=== PATIENT | female | born 1975 | race African-American/Black ===

== ENCOUNTER 2017-04-16 15:35 | Emergency (ER) | payer OTHER ==
[2017-04-16 15:49] VITALS: BP 135/79; PULSE 89; TEMP 98.1; BMI 31.3
[2017-04-16 17:02] LABS: BASOPHIL 0.6 % (0-2.0); EOSINOPHIL 2.3 % (0-4.5); MCH 23.4 pg (25.7-33.7); MCHC 31.7 g/dl (32.0-36.0); MEAN PLT VOLUME 8.8 fl (7.5-11.1); NEUTROPHILS 69.1 % (42.8-82.8); PLATELET COUNT 289 K/MM3 (134-434); RDW 15.1 % (11.6-15.6); WHITE BLOOD COUNT 8.6 K/mm3 (4.0-10.0)
[2017-04-16 17:05] LABS: URINE APPEARANCE CLEAR; URINE BILIRUBIN NEGATIVE (NEGATIVE); URINE BLOOD NEGATIVE (NEGATIVE); URINE COLOR LTYELLOW; URINE GLUCOSE (UA) NEGATIVE (NEGATIVE); URINE KETONE NEGATIVE (NEGATIVE); URINE LEUK ESTERASE NEGATIVE (NEGATIVE); URINE NITRITE NEGATIVE (NEGATIVE); URINE PROTEIN NEGATIVE (NEGATIVE); URINE UROBILINOGEN NEGATIVE mg/dL (0.2-1.0)
[2017-04-16 17:31] LABS: ALBUMIN 3.9 g/dl (3.4-5.0); ANION GAP 7 (8-16); BILIRUBIN,TOTAL 0.6 mg/dL (0.2-1.0); CALCIUM 8.9 mg/dL (8.5-10.1); CO2 26 mmol/L (21-32); CREATININE 0.7 mg/dL (0.55-1.02); GLUCOSE,RANDOM 80 mg/dL (74-106); SGOT/AST 11 U/L (15-37); SGPT/ALT 23 U/L (12-78)
[2017-04-16 17:32] LABS: ALK PHOS 69 U/L (45-117); TOT PROT 7.4 g/dl (6.4-8.2)
--- NOTE | 2017-04-16 17:35 | PDOC ---
History of Present Illness - History of Present Illness Initial Comments: 04/16/17 17:36 The patient is a 41 year old female with history of esophageal tear (discovered January 2017, never ligated), GERD, R salpingectomy, uterine fibroids, who presents to the ED complaining approximately 1 month of left lower quadrant swelling with associated left lower quadrant pain. She described her left lower quadrant pain as dull in nature with a pulling down sensation, radiating to the left lower back, and worse prior to and during menstruation. She also reports associated nausea. The patient does endorse some urinary incontinence on sneezing and exertion and reports some discomfort on urination. She denies any pain. She also complains of some diarrhea. The patient denies vomiting or diarrhea. She denies abnormal vaginal bleeding. <Kimberley Ricks - Last Filed: 04/16/17 17:36> - General History Source: Patient Exam Limitations: No Limitations <Candido Haskins - Last Filed: 04/16/17 19:19> - General Chief Complaint: Pain, Acute Stated Complaint: LOWER ABD PAIN Time Seen by Provider: 04/16/17 16:34 Past History <Kimberley Ricks - Last Filed: 04/16/17 17:36> - Past Medical History Anemia: Yes Asthma: No Cancer: No Cardiac Disorders: No CVA: No COPD: No CHF: No Dementia: No Diabetes: No GI Disorders: Yes (ABD. BLOATING) Disorders: No HTN: No Hypercholesterolemia: No Liver Disease: No Seizures: No Thyroid Disease: No - Surgical History Abdominal Surgery: No Appendectomy: No Cardiac Surgery: No Cholecystectomy: No Lung Surgery: No Neurologic Surgery: No Orthopedic Surgery: No - Immunization History Immunization Up to Date: Yes - Psycho/Social/Smoking Cessation Hx Anxiety: No Suicidal Ideation: No Smoking Status: Yes Smoking History: Current some day smoker Have you smoked in the past 12 months: No Number of Cigarettes Smoked Daily: 2 Cigars Per Day: 2 Information on smoking cessation initiated: No 'Breaking Loose' booklet given: 02/20/14 Hx Alcohol Use: No Drug/Substance Use Hx: No Substance Use Type: Alcohol Hx Substance Use Treatment: No <Candido Haskins - Last Filed: 04/16/17 19:19> - Past Medical History Allergies/Adverse Reactions: Allergies Allergy/AdvReac Type Severity Reaction Status Date / Time No Known Drug Allergies Allergy Severe Difficulty Verified 04/16/17 15:43 Breathing shrimp Allergy Severe Difficulty Uncoded 04/16/17 15:43 Breathing Home Medications: Ambulatory Orders Albuterol Sulfate Inhaler - [Ventolin HFA Inhaler -] 1 - 2 inh PO Q4H #1 inhaler 04/12/16 Ranitidine [Zantac -] 150 mg PO DAILY 04/12/16 Cyclobenzaprine HCl [Flexeril -] 10 mg PO TID #15 tablet 06/09/16 Omeprazole 10 mg PO ASDIR 06/09/16 Review of Systems - Review of Systems Able to Perform ROS?: Yes Comments:: 04/16/17 17:36 GENERAL/CONSTITUTIONAL: No fever or chills. No weakness. HEAD, EYES, EARS, NOSE AND THROAT: No change in vision. No ear pain or discharge. No sore throat CARDIOVASCULAR: No chest pain or shortness of breath. RESPIRATORY: No cough, wheezing, or hemoptysis. GASTROINTESTINAL: +LLQ pain, nausea. No vomiting or diarrhea. GENITOURINARY: +Stress urinary incontinence. No dysuria, frequency, or hematuria. No abnormal vaginal bleeding. MUSCULOSKELETAL: No joint or muscle swelling or pain. No neck or back pain. SKIN: No rash NEUROLOGIC: No headache, vertigo, loss of consciousness, or change in strength/ sensation. ENDOCRINE: No increased thirst. No abnormal weight change. HEMATOLOGIC/LYMPHATIC: No anemia, easy bleeding, or history of blood clots. ALLERGIC/IMMUNOLOGIC: No hives or skin allergy. <Kimberley Ricks - Last Filed: 04/16/17 17:36> *Physical Exam - Vital Signs Last Vital Signs Temp Pulse Resp BP Pulse Ox 98.1 F 89 20 135/79 99 04/16/17 15:41 04/16/17 15:41 04/16/17 15:41 04/16/17 15:41 04/16/17 16:13 - Physical Exam Comments: 04/16/17 17:41 GENERAL: Awake, alert, and fully oriented, in no acute distress HEAD: No signs of trauma EYES: PERRLA, EOMI, sclera anicteric, conjunctiva clear ENT: Auricles normal inspection, hearing grossly normal, nares patent, oropharynx clear without exudates. Moist mucosa NECK: Normal ROM, supple, no lymphadenopathy, JVD, or masses LUNGS: Breath sounds equal, clear to auscultation bilaterally. No wheezes, and no crackles HEART: Regular rate and rhythm, normal S1 and S2, no murmurs, rubs or gallops ABDOMEN: +RLQ, suprapubic, LLQ. Soft, normoactive bowel sounds. No guarding, no rebound. No masses EXTREMITIES: Normal range of motion, no edema. No clubbing or cyanosis. No cords, erythema, or tenderness NEUROLOGICAL: Cranial nerves II through XII grossly intact. Normal speech, normal gait SKIN: Warm, Dry, normal turgor, no rashes or lesions noted. <Kimberley Ricks - Last Filed: 04/16/17 17:36> - Vital Signs Last Vital Signs Temp Pulse Resp BP Pulse Ox 98.1 F 89 20 135/79 99 04/16/17 15:41 04/16/17 15:41 04/16/17 15:41 04/16/17 15:41 04/16/17 16:13 <Candido Haskins - Last Filed: 04/16/17 19:19> ED Treatment Course - LABORATORY CBC & Chemistry Diagram: 04/16/17 16:45 04/16/17 16:45 - ADDITIONAL ORDERS Additional order review: Laboratory Results 04/16/17 16:48 Urine Color Ltyellow Urine Appearance Clear Urine pH 5.0 Urine Protein Negative Urine Glucose (UA) Negative Urine Ketones Negative Urine Blood Negative Urine Nitrite Negative Urine Bilirubin Negative Urine Urobilinogen Negative Ur Leukocyte Esterase Negative Urine HCG, Qual Negative <Kimberley Ricks - Last Filed: 04/16/17 17:36> - LABORATORY CBC & Chemistry Diagram: 04/16/17 16:45 04/16/17 16:45 - ADDITIONAL ORDERS Additional order review: Laboratory Results 04/16/17 16:48 Urine Color Ltyellow Urine Appearance Clear Urine pH 5.0 Urine Protein Negative Urine Glucose (UA) Negative Urine Ketones Negative Urine Blood Negative Urine Nitrite Negative Urine Bilirubin Negative Urine Urobilinogen Negative Ur Leukocyte Esterase Negative Urine HCG, Qual Negative - RADIOLOGY Radiology Studies Ordered: Category Date Time Status ABDOMEN & PELVIS CT WITH CONTR [CT] Stat CT Scan 04/16/17 17:26 Ordered TRANSVAGINAL ULTRASOUND US [US] Stat Ultrasound 04/16/17 16:40 Ordered <Candido Haskins - Last Filed: 04/16/17 19:19> Medical Decision Making - Medical Decision Making 04/16/17 17:31 A portion of this note was documented by scribe services under my direction. I have reviewed the details of the note, within reason, and agree with the documentation with the following case summary and management plan written by me. Patient treated in the ED. Nursing notes are reviewed and incorporated into the medical decision-making. Vital signs reviewed. Peripheral IV access obtained by the nurse, laboratory studies are drawn and sent, reviewed and interpreted by myself. Vital Signs Temp Pulse Resp BP Pulse Ox 98.1 F 89 20 135/79 99 04/16/17 15:41 04/16/17 15:41 04/16/17 15:41 04/16/17 15:41 04/16/17 16:13 41-year-old female with history of peptic ulcer disease, GERD, fibroids, right salpingectomy presents with lower abdominal pain for one month. Patient states that the pain is dull and intermittent and occasionally associated with urinary incontinence but denies dysuria, fevers, nausea, vomiting. Because of insurance issues, patient is unable to follow-up as an outpatient. She denies vaginal bleeding or discharge. Differential includes fibroid, diverticulitis, cystitis, appendicitis. We'll obtain labs, CAT scan and transvaginal ultrasound, urine analysis reassess. 04/16/17 18:51 CBC, BMP 04/16/17 16:45 04/16/17 16:45 CMP Sodium 140 mmol/L (136-145) 04/16/17 16:45 Potassium 3.9 mmol/L (3.5-5.1) 04/16/17 16:45 Chloride 107 mmol/L (98-107) 04/16/17 16:45 Carbon Dioxide 26 mmol/L (21-32) 04/16/17 16:45 Anion Gap 7 (8-16) L 04/16/17 16:45 BUN 12 mg/dL (7-18) 04/16/17 16:45 Creatinine 0.7 mg/dL (0.55-1.02) 04/16/17 16:45 Creat Clearance w eGFR > 60 (>60) 04/16/17 16:45 Random Glucose 80 mg/dL (74-106) 04/16/17 16:45 Calcium 8.9 mg/dL (8.5-10.1) 04/16/17 16:45 Total Bilirubin 0.6 mg/dL (0.2-1.0) D 04/16/17 16:45 AST 11 U/L (15-37) L 04/16/17 16:45 ALT 23 U/L (12-78) D 04/16/17 16:45 Alkaline Phosphatase 69 U/L (45-117) 04/16/17 16:45 Total Protein 7.4 g/dl (6.4-8.2) 04/16/17 16:45 Albumin 3.9 g/dl (3.4-5.0) 04/16/17 16:45 Lipase 279 U/L (73-393) 04/16/17 16:45 Urine Test Results Urine Color Ltyellow 04/16/17 16:48 Urine Appearance Clear 04/16/17 16:48 Urine pH 5.0 (5.0-8.0) 04/16/17 16:48 Urine Protein Negative (NEGATIVE) 04/16/17 16:48 Urine Glucose (UA) Negative (NEGATIVE) 04/16/17 16:48 Urine Ketones Negative (NEGATIVE) 04/16/17 16:48 Urine Blood Negative (NEGATIVE) 04/16/17 16:48 Urine Nitrite Negative (NEGATIVE) 04/16/17 16:48 Urine Bilirubin Negative (NEGATIVE) 04/16/17 16:48 Ur Leukocyte Esterase Negative (NEGATIVE) 04/16/17 16:48 Urine preg negative. Labs reviewed. No acute findings. Ultrasound shows multiple uterine fibroids. CT scan pending. 04/16/17 19:18 CT shows degernative fibroids. Likely fibroids. Will refer to Dr. Robin for follow up. Supportive care I discussed the physical exam findings, ancillary test results and final diagnoses with the patient. I answered all of the patient's questions. The patient was satisfied with the care received and felt comfortable with the discharge plan and treatment plan. The patient will call their primary care physician within 24 hours to arrange follow-up and will return to the Emergency Department with any new, persistant or worsening symptoms. <Candido Haskins - Last Filed: 04/16/17 19:19> *DC/Admit/Observation/Transfer - Attestations Scribe Attestion: 04/16/17 17:42 Documentation prepared by Kimberley Ricks, acting as medical assistant secretary for Candido Haskins MD. <Kimberley Ricks - Last Filed: 04/16/17 17:36> <Candido Haskins - Last Filed: 04/16/17 19:19> Diagnosis at time of Disposition: Fibroids Qualifiers: Uterine leiomyoma location: unspecified location Qualified Code(s): D25.9 - Leiomyoma of uterus, unspecified - Discharge Dispostion Disposition: HOME Condition at time of disposition: Stable - Referrals Referrals: Abhijeet Keenan MD [Primary Care Provider] - Chico Robin MD [Staff Physician] - - Patient Instructions Printed Discharge Instructions: DI for Uterine Fibroids, Facts About Fibroids Additional Instructions: Take 650 mg tylenol every 4 hours as needed for pain. 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 Your pain is likely from your fibroids. Call and schedule an appointment.
== END 2017-04-16 19:31 | disposition home or self-care (01) ==
LOC: JER 15:35
DX: D25.9 Leiomyoma of uterus, unspecified (principal); K21.9 Gastro-esophageal reflux disease without esophagitis; D64.9 Anemia, unspecified; F17.210 Nicotine dependence, cigarettes, uncomplicated
CPT/HCPCS: 36415; 74177-TC; 76856-TC; 80053; 81003; 83690; 84703; 85025; 87086; 99284-25

== ENCOUNTER 2017-07-06 09:58 | Day surgery (SDC) | payer OTHER ==
[2017-07-05 16:23] VITALS: BMI 31.3
[2017-07-06] MEDS ORDERED: PROPOFOL 20 ML ONE ×2 (12:21)
[2017-07-06 13:00] VITALS: TEMP 98.6
[2017-07-06 14:03] VITALS: BP 130/82; PULSE 84
--- NOTE | 2017-07-07 17:02 | PATH ---
Surgical Pathology Report Patient Name: VANNESSA ZELAYA [facility]. Rec. #: [id number] /Age/Gender: 1975 (Age: 41) / F Account: [id number] Location: U-ENDOSCOPY Taken: 07/06/2017 Received: 07/06/2017 Reported: 07/07/2017 Physicians: Andrea Romo M.D. Specimen(s) Received A: BX EROSION ANTRUM B: BX ESOPHAGUS Clinical History Persistent dysphagia despite medication, anemia Erosions antrum Final Diagnosis A. STOMACH, ANTRUM, EROSION, BIOPSY: GASTRIC ANTRAL MUCOSA WITH MILD CHRONIC ACTIVE GASTRITIS. IMMUNOHISTOCHEMICAL STAIN FOR H. PYLORI IS NEGATIVE. B. ESOPHAGUS, BIOPSY: SQUAMOUS MUCOSA WITH FOCAL CONGESTION AND MILD REFLUX ESOPHAGITIS. NO DEFINITIVE EVIDENCE OF EOSINOPHILIC ESOPHAGITIS. Electronically Signed Jaycee Johnson M.D. Gross Description A. Received in formalin, labeled "biopsy erosion antrum" are 2 richardson, irregular portions of soft tissue measuring 0.1 and 0.4 cm. in greatest dimension. The specimens are submitted in toto in one cassette. B. Received in formalin, labeled "biopsy esophagus" are 4 richardson, irregular portions of soft tissue ranging from 0.2-0.4 cm. in greatest dimension. The specimens are submitted in toto in one cassette. 07/06/201707/06/2017
== END 2017-07-06 14:03 | disposition home or self-care (01) ==
LOC: JASU-ENDO 09:58
PROVIDERS: ATTEND Internal Medicine Gastroenterology
PROC: 0DB68ZX Excision of Stomach, Via Natural or Artificial Opening Endoscopic, Diagnostic (ICD-10-PCS; 2017-07-06)
PROC: 0DB58ZX Excision of Esophagus, Via Natural or Artificial Opening Endoscopic, Diagnostic (ICD-10-PCS; principal; 2017-07-06 11:00)
DX: K25.9 Gastric ulcer, unspecified as acute or chronic, without hemorrhage or perforation (principal)
CPT/HCPCS: 84703; 88305-TC; 88342-TC

== ENCOUNTER 2018-07-14 11:00 | Day surgery (SDC) | payer OTHER ==
[2018-07-12 14:42] VITALS: BMI 32.4
[2018-07-14] MEDS ORDERED: LIDOCAINE HCL/PF 2% SDV 5ML VIAL ONE (12:26)
[2018-07-14] MEDS ORDERED: PROPOFOL 20 ML ONE ×2 (12:27)
[2018-07-14] MEDS ORDERED: MIDAZOLAM HCL 2 MG/2 ML SINGLE DOSE VIAL ONE (12:27)
--- NOTE | 2018-07-14 12:40 | HP ---
History & Physical Update - History History: No Change - Physical Physical: No Change - Assessment Assessment: No Change - Plan Plan: No Change (Agree with H&P from 07/01/2018 - plan for hysteroscopic myomectomy/polypectomy for 2.1cm endometrial polyp vs. fibroid)
[2018-07-14] MEDS ORDERED: IBUPROFEN 800 MG/8 ML IJ IVPB PRN (12:41)
[2018-07-14] MEDS ORDERED: LACTATED RINGERS SOLUTION 1,000 ML IV SCH (12:45)
[2018-07-14] MEDS ORDERED: DEXAMETHASONE SOD PHOSPHATE 4 MG/1 ML VIAL ONE (13:01)
[2018-07-14] MEDS ORDERED: KETOROLAC TROMETHAMINE 30 MG/1 ML VIAL ONE (13:02)
[2018-07-14] MEDS ORDERED: ONDANSETRON 4 MG/2 ML VIAL IVPUSH PRN (13:38)
[2018-07-14] MEDS ORDERED: ACETAMINOPHEN 1000 MG/100 ML VIAL (NON FORMULARY) IVPB PRN (13:38)
[2018-07-14] MEDS ORDERED: oxyCODONE HCL 5 MG TABLET PO PRN (13:38)
[2018-07-14] MEDS ORDERED: ACETAMINOPHEN INJECTION 100 ML IVPB ONE (13:56)
--- NOTE | 2018-07-14 14:39 | OP ---
Operative Note - Note: Operative Date: 07/14/18 Pre-Operative Diagnosis: submucosal leiomyoma Operation: hysteroscopic myomectomy, suction D&C Findings: 2cm submucosal leiomyoma in right cornua of uterus Post-Operative Diagnosis: Same as Pre-op Surgeon: Jossie Davies Anesthesiologist/BIOLOGY SPECIALIST: Mira Baker Anesthesia: General (with LMA) Specimens Removed: leiomyoma, endometrial currettings Estimated Blood Loss (mls): 5 Drains, Volume Out (mls): 0 (no fluid deficit) Operative Report Dictated: Yes
[2018-07-14 15:47] VITALS: BP 135/82; PULSE 84; TEMP 97.9
--- NOTE | 2018-07-19 14:28 | PATH ---
Surgical Pathology Report Patient Name: VANNESSA ZELAYA [facility]. Rec. #: [id number] /Age/Gender: 1975 (Age: 42) / F Account: [id number] Location: [facility] SURGICAL Taken: 07/14/2018 Received: 07/15/2018 Reported: 07/19/2018 Physicians: Jossie Davies M.D. Specimen(s) Received LEIOMYOMA Clinical History Uterine polyp/leiomyoma Final Diagnosis LEIOMYOMA, HYSTEROSCOPIC MYOMECTOMY: FRAGMENTS OF LEIOMYOMA. POLYPOID FRAGMENTS OF SECRETORY ENDOMETRIUM AND BENIGN CERVICAL TISSUE Electronically Signed Jaycee Johnson M.D. Gross Description Received in formalin labeled "leiomyoma," is a 6 g, 4.5 x 3.8 x 0.4 cm aggregate of richardson fragments of soft tissue. The formalin is filtered and the specimen is entirely submitted in 4 cassettes. /07/15/2018 saudi07/15/2018
--- NOTE | 2018-07-20 13:22 | OP ---
DATE OF OPERATION: 07/14/2018 PREOPERATIVE DIAGNOSIS: Submucosal leiomyoma, abnormal uterine bleeding. POSTOPERATIVE DIAGNOSIS: Submucosal leiomyoma, abnormal uterine bleeding. PROCEDURE: Hysteroscopic myomectomy, suction dilatation and curettage. FINDINGS: Included 2-m submucosal leiomyoma right cornu of uterus. SURGEON: Jossie aDvies MD ANESTHESIA: General with LMA. ANESTHESIOLOGIST: Mira Baker MD COMPLICATIONS: None. SPECIMENS REMOVED: Leiomyoma, endometrial curettings. ESTIMATED BLOOD LOSS: 5 mL. COUNTS: Sponge and instrument counts were reported to be correct. DISPOSITION: Stable to PACU. FLUID DEFICIT: 0 mL. BRIEF HISTORY AND PROCEDURE: Patient is a 42-year-old female who was seen in the office and on hysterosonogram was found to have approximately 2.1 cm submucosal leiomyoma. The patient was counseled on her options in the office, and she elected to undergo a hysteroscopic resection. The patient was admitted to [facility] on July 14, 2018. Consents were signed in the office in consultation prior to admission. The consents were reconfirmed upon admission. The patient was then taken back to the operating room where she was placed in the dorsal lithotomy position, given general anesthesia by Dr. Mira Baker with LMA, and a hard time-out was performed. She was prepped and draped in the usual sterile fashion. A speculum was then placed in the vagina. Anterior lip of the cervix was grasped with a tenaculum, and the cervix was dilated to accommodate an operative hysteroscope, which was advanced to the fundus of the uterus. An approximately 2-cm submucosal leiomyoma was noted in the right cornu of the uterus, which was resected in several passes with the Versapoint Resectoscope device. A suction dilatation and curettage was then performed to remove all the tissue as well as get a sample of the endometrial curettings. A final look with the hysteroscope revealed no evidence of uterine perforation, and all specimens were sent to Pathology. All instruments were removed from the vagina. Sponge and instrument counts were reported to be correct. The patient was awoken from anesthesia, recovering in stable condition in the PACU after the procedure. JOSSIE DAVIES DO /[id number]
== END 2018-07-14 15:40 | disposition home or self-care (01) ==
LOC: JASU-SURG 11:00
PROVIDERS: ATTEND Obstetrics & Gynecology
PROC: 0UJD8ZZ Inspection of Uterus and Cervix, Via Natural or Artificial Opening Endoscopic (ICD-10-PCS; 2018-07-14)
PROC: 0UB98ZZ Excision of Uterus, Via Natural or Artificial Opening Endoscopic (ICD-10-PCS; principal; 2018-07-14 12:30)
PROC: 0UDB7ZX Extraction of Endometrium, Via Natural or Artificial Opening, Diagnostic (ICD-10-PCS; 2018-07-14 12:30)
DX: D25.0 Submucous leiomyoma of uterus (principal); N93.9 Abnormal uterine and vaginal bleeding, unspecified
CPT/HCPCS: 84703; 88305-TC; 94760; J0131

== ENCOUNTER 2018-12-30 11:30 | Emergency (ER) | payer OTHER ==
[2018-12-30 11:43] VITALS: BMI 31.5
[2018-12-30] MEDS ORDERED: SODIUM CHLORIDE 1,000 ML IV STA (13:20)
[2018-12-30] MEDS ORDERED: KETOROLAC TROMETHAMINE 30 MG/1 ML VIAL IVPUSH ONE (13:20)
[2018-12-30] MEDS ORDERED: KETOROLAC TROMETHAMINE 30 MG/1 ML VIAL ONE (14:10)
[2018-12-30 14:41] LABS: BASO % 1.3 % (0-2.0); EOS % 2.6 % (0-4.5); HEMATOCRIT 35.8 % (32.4-45.2); HEMOGLOBIN 11.2 GM/dL (10.7-15.3); MCH 21.1 pg (25.7-33.7); MCHC 31.3 g/dl (32.0-36.0); MEAN CELL VOLUME 67.2 fl (80-96); MEAN PLT VOLUME 8.8 fl (7.5-11.1); MONO % 8.5 % (3.8-10.2); NEUT % 69.6 % (42.8-82.8); PLATELET COUNT 276 K/MM3 (134-434); RBC 5.33 M/mm3 (3.60-5.2); RDW 28.4 % (11.6-15.6); WHITE BLOOD COUNT 8.8 K/mm3 (4.0-10.0)
[2018-12-30 15:10] LABS: PH,URINE 5.5 (5.0-8.0); URINE APPEARANCE CLEAR; URINE BILIRUBIN NEGATIVE (NEGATIVE); URINE COLOR YELLOW; URINE GLUCOSE (UA) NEGATIVE (NEGATIVE); URINE KETONE NEGATIVE (NEGATIVE); URINE LEUK ESTERASE NEGATIVE (NEGATIVE); URINE NITRITE NEGATIVE (NEGATIVE); URINE PROTEIN NEGATIVE (NEGATIVE)
[2018-12-30 15:12] LABS: ALBUMIN 3.4 g/dl (3.4-5.0); ALK PHOS 72 U/L (45-117); ANION GAP 8 MMOL/L (8-16); BILIRUBIN,TOTAL 0.4 mg/dL (0.2-1); BLOOD UREA NITROGEN 6 mg/dL (7-18); CALCIUM 9.1 mg/dL (8.5-10.1); CHLORIDE 108 mmol/L (98-107); CO2 24 mmol/L (21-32); CREATININE 0.8 mg/dL (0.55-1.3); GLUCOSE,RANDOM 81 mg/dL (74-106); LIPASE 169 U/L (73-393); MAGNESIUM 2.1 mg/dL (1.8-2.4); POTASSIUM 4.3 mmol/L (3.5-5.1); SGOT/AST 18 U/L (15-37); SGPT/ALT 16 U/L (13-61); SODIUM 139 mmol/L (136-145)
--- NOTE | 2018-12-30 15:13 | PDOC ---
History of Present Illness - General Chief Complaint: Pain, Acute Stated Complaint: RT SIDE ABD PAIN/ LOWER BACK PAIN Time Seen by Provider: 12/30/18 12:35 History Source: Patient Exam Limitations: No Limitations - History of Present Illness Travel History: No Initial Comments: 12/30/18 15:13 43 y/o female presents to the ED with c/o rt lower abd pain radiating to rt flank region x 2- 3 days without n/v/d, constipation, urinary complaints, or fever. Pt denies recent travel, change in diet, or GI hx. Pt states hx fibroids with removal x 2, last sx being last year. pt states also hx of sciatica but denies rt back pain or rt buttock pain. Timing/Duration: reports: intermittent Quality: reports: moderate, cramping Abdominal Pain Onset Location: reports: RLQ, suprapubic (rt and mid) Pain Radiation: reports: no radiation Activities at Onset: reports: none Aggravating Factors: improves with: None Alleviating Factors: improves with: None Past History - Travel Traveled outside of the country in the last 30 days: No Close contact w/someone who was outside of country & ill: No - Past Medical History Allergies/Adverse Reactions: Allergies Allergy/AdvReac Type Severity Reaction Status Date / Time shrimp Allergy Severe Difficulty Verified 12/30/18 11:39 Breathing shrimp Allergy Severe Difficulty Uncoded 12/30/18 11:39 Breathing Home Medications: Ambulatory Orders Albuterol Sulfate Inhaler - [Ventolin HFA Inhaler -] 1 - 2 inh PO Q4H #1 inhaler 04/12/16 Cyclobenzaprine HCl [Flexeril -] 10 mg PO TID #15 tablet 06/09/16 Pantoprazole Sodium 40 mg PO DAILY #0 tablet.dr 07/06/17 Meloxicam 15 mg PO DAILY PRN 07/12/18 Naloxegol Oxalate [Movantik] 25 mg PO DAILY 07/12/18 Ibuprofen [Motrin -] 600 mg PO QID PRN #28 tablet 07/14/18 Anemia: Yes Asthma: No Cancer: No Cardiac Disorders: Yes (murmur, arryhthmia) CVA: No COPD: No CHF: No Dementia: No Diabetes: No GI Disorders: Yes (ABD. BLOATING) Disorders: No HTN: No Hypercholesterolemia: No Liver Disease: No Seizures: No Thyroid Disease: No - Surgical History Abdominal Surgery: Yes (r salpingectomy, myomectomy) Appendectomy: No Cardiac Surgery: No Cholecystectomy: No Lung Surgery: No Neurologic Surgery: No Orthopedic Surgery: Yes - Immunization History Immunization Up to Date: Yes - Suicide/Smoking/Psychosocial Hx Smoking Status: Yes Smoking History: Current every day smoker Have you smoked in the past 12 months: Yes Number of Cigarettes Smoked Daily: 4 Cigars Per Day: 2 Information on smoking cessation initiated: No 'Breaking Loose' booklet given: 07/12/18 Hx Alcohol Use: No Drug/Substance Use Hx: No Substance Use Type: Alcohol Hx Substance Use Treatment: No Patient Lives Alone: No Lives with/in: spouse/SO Review of Systems - Review of Systems Able to Perform ROS?: Yes Constitutional: No: Symptoms Reported HEENTM: No: Symptoms Reported Respiratory: No: Symptoms reported Cardiac (ROS): No: Symptoms Reported ABD/GI: Yes: Abdominal cramping : No: Symptoms Reported Musculoskeletal: No: Symptoms Reported Integumentary: No: Symptoms Reported Neurological: No: Symptoms reported Endocrine: No: Symptoms Reported Hematologic/Lymphatic: No: Symptoms Reported *Physical Exam - Vital Signs Last Vital Signs Temp Pulse Resp BP Pulse Ox 98.3 F 92 H 18 142/86 99 12/30/18 11:39 12/30/18 11:39 12/30/18 11:39 12/30/18 11:39 12/30/18 11:39 - Physical Exam General Appearance: Yes: Nourished, Appropriately Dressed. No: Apparent Distress Respiratory/Chest: positive: Lungs Clear, Normal Breath Sounds. negative: Respiratory Distress, Accessory Muscle Use Cardiovascular: positive: Regular Rhythm, Regular Rate. negative: Murmur Female Pelvic Exam: positive: normal external exam (no discharge/bleeding) Gastrointestinal/Abdominal: positive: Soft, Tenderness (midsuprapubic and rt suprapubic, rt flank) Musculoskeletal: negative: CVA Tenderness Integumentary: positive: Normal Color, Warm, Moist Neurologic: positive: Motor Strength 5/5 (ambulatory) ED Treatment Course - LABORATORY CBC & Chemistry Diagram: 12/30/18 14:34 12/30/18 14:34 - ADDITIONAL ORDERS Additional order review: 12/30/18 14:34 RBC 5.33 H MCV 67.2 L MCHC 31.3 L RDW 28.4 H MPV 8.8 Neutrophils % 69.6 Lymphocytes % 18.0 Monocytes % 8.5 Eosinophils % 2.6 Basophils % 1.3 - RADIOLOGY Radiology Studies Ordered: Category Date Time Status SPIRAL- RENAL-STONE CT [CT] Stat CT Scan 12/30/18 13:20 Ordered PELVIC / BLADDER US [US] Stat Ultrasound 12/30/18 13:20 Ordered - Medications Given in the ED: ED Medications Discontinued Medications Generic Name Dose Route Start Last Admin Trade Name Nazario PRN Reason Stop Dose Admin Sodium Chloride 1,000 mls @ 1,000 mls/hr 12/30/18 13:20 12/30/18 14:33 Normal Saline - IV 12/30/18 14:19 1,000 mls/hr ASDIR STA Administration Ketorolac Tromethamine 30 mg 12/30/18 13:20 12/30/18 14:33 Toradol Injection - IVPUSH 12/30/18 13:21 30 mg ONCE ONE Administration Medical Decision Making - Medical Decision Making 12/30/18 14:08 CC: lower abd cramping x 2- 3days worse with movement Exam: rt/mid suprapubic tenderness w/ mild rt flank tenderness Plan: labs. uriine, ivf, toradol, u/s and spiral ct 12/30/18 18:10 Laboratory Tests 12/30/18 12/30/18 12/30/18 14:24 14:34 14:34 WBC 8.8 Hgb 11.2 Hct 35.8 MCV 67.2 L MCH 21.1 L MCHC 31.3 L RDW 28.4 H Sodium Potassium Chloride Carbon Dioxide Anion Gap BUN Creatinine Random Glucose AST ALT Lipase Serum , Qual Negative Urine Protein Negative Urine Glucose (UA) Negative Urine Ketones Negative Urine Blood Negative Urine Nitrite Negative Urine Bilirubin Negative Ur Leukocyte Esterase Negative 12/30/18 14:34 WBC Hgb Hct MCV MCH MCHC RDW Sodium 139 Potassium 4.3 Chloride 108 H Carbon Dioxide 24 Anion Gap 8 BUN 6 L Creatinine 0.8 Random Glucose 81 AST 18 ALT 16 Lipase 169 Serum , Qual Urine Protein Urine Glucose (UA) Urine Ketones Urine Blood Urine Nitrite Urine Bilirubin Ur Leukocyte Esterase Small uterine fibroid measuring 1.2 x 1.6cm and left ovarian cyst. Pt states feeling better, ambulatory, and eating. pt requesting to go home. Ct shows pericolonic soft tissue stranding in the sigmoid colon? diverticulosis, no other acute findings. pt will be discharged home w/ GI referral. 12/30/18 18:56 *DC/Admit/Observation/Transfer Diagnosis at time of Disposition: Lower abdominal pain - Discharge Dispostion Disposition: HOME Condition at time of disposition: Improved - Referrals Referrals: Abhijeet Keenan MD [Primary Care Provider] - Andrea Romo MD [Staff Physician] - - Patient Instructions Printed Discharge Instructions: DI for Diverticulosis Additional Instructions: Your ultrasound shows a small fibroid and CT shows diverticulosis. Otherwise your labs, urine, and testing were normal. Follow up with GI - Post Discharge Activity
[2018-12-30 15:21] LABS: ANISOCYTOSIS 2+; MACROCYTOSIS 0; OVALOCYTE 1+; PLATELET ESTIMATE NORMAL; TARGET CELLS 1+
[2018-12-30 19:43] VITALS: BP 120/78; PULSE 78; TEMP 98.1
== END 2018-12-30 19:30 | disposition home or self-care (01) ==
LOC: JER 11:30
PROC: 3E0333Z Introduction of Anti-inflammatory into Peripheral Vein, Percutaneous Approach (ICD-10-PCS; principal; 2018-12-30)
PROC: 3E0337Z Introduction of Electrolytic and Water Balance Substance into Peripheral Vein, Percutaneous Approach (ICD-10-PCS; 2018-12-30)
DX: R10.30 Lower abdominal pain, unspecified (principal); R01.1 Cardiac murmur, unspecified; I49.9 Cardiac arrhythmia, unspecified; F17.210 Nicotine dependence, cigarettes, uncomplicated
CPT/HCPCS: 36415; 74176-TC; 76856-TC; 80053; 81003; 83690; 83735; 84703; 85025; 87086; 99283-25; J7030

== ENCOUNTER 2020-09-30 04:13 | Day surgery (SDC) | payer OTHER ==
[2020-09-27 08:37] VITALS: BMI 32.8
[~2020-09-30 04:13] MED LIST: ACETAMINOPHEN 325 MG TABLET (FP) PO PRN; IBUPROFEN 400 MG TABLET (FP) PO PRN
[2020-09-30] MEDS ORDERED: oxyCODONE HCL 5 MG TABLET PO PRN (14:17)
[2020-09-30] MEDS ORDERED: ONDANSETRON 4 MG/2 ML VIAL IVPUSH PRN (14:17)
[2020-09-30] MEDS ORDERED: PROPOFOL 20 ML ONE ×4 (14:30→15:22)
[2020-09-30] MEDS ORDERED: LACTATED RINGERS SOLUTION 1,000 ML IV SCH (14:30)
[2020-09-30] MEDS ORDERED: MIDAZOLAM HCL 2 MG/2 ML SINGLE DOSE VIAL ONE (14:31)
[2020-09-30] MEDS ORDERED: KETOROLAC TROMETHAMINE 30 MG/1 ML VIAL ONE (15:27)
[2020-09-30 17:46] VITALS: BP 128/89; PULSE 72; TEMP 97.2
== END 2020-09-30 17:50 | disposition home or self-care (01) ==
LOC: JASU-SURG 04:13
PROVIDERS: ATTEND Obstetrics & Gynecology
PROC: 0UJD8ZZ Inspection of Uterus and Cervix, Via Natural or Artificial Opening Endoscopic (ICD-10-PCS; 2020-09-30)
PROC: 0UB98ZZ Excision of Uterus, Via Natural or Artificial Opening Endoscopic (ICD-10-PCS; principal; 2020-09-30 12:30)
PROC: 0UDB7ZX Extraction of Endometrium, Via Natural or Artificial Opening, Diagnostic (ICD-10-PCS; 2020-09-30 12:30)
DX: N92.0 Excessive and frequent menstruation with regular cycle (principal); D25.0 Submucous leiomyoma of uterus
CPT/HCPCS: 36415; 84703; 86850; 86900; 86901; 94760

== ENCOUNTER 2021-06-17 05:01 | Day surgery (SDC) | payer OTHER ==
[2021-06-12 18:19] VITALS: BMI 32.4
[2021-06-17] MEDS ORDERED: SODIUM CHLORIDE 1,000 ML IV SCH ×2 (11:15)
[2021-06-17] MEDS ORDERED: MIDAZOLAM HCL 2 MG/2 ML SINGLE DOSE VIAL IVPUSH ONE ×10 (11:34→13:00)
[2021-06-17] MEDS ORDERED: KETOROLAC TROMETHAMINE 30 MG/1 ML VIAL IVPUSH ONE ×4 (12:43→13:10)
[2021-06-17] MEDS ORDERED: HYDROmorphone HCl 2 MG/ML VIAL IVPUSH ONE ×2 (13:15)
[2021-06-17] MEDS ORDERED: LABETALOL HCL 5 MG/1 ML (100MG/20 ML VIAL) IVPUSH ONE ×2 (13:15→13:16)
[2021-06-17] MEDS ORDERED: HYDROmorphone *PCA* 10MG/50ML DISP.SYRIN PCA PRN (13:35)
[2021-06-17] MEDS ORDERED: SODIUM CHLORIDE 500 ML IV SCH (13:35)
[2021-06-17] MEDS ORDERED: ONDANSETRON 4 MG/2 ML VIAL IVPUSH PRN (14:18)
[2021-06-17] MEDS ORDERED: HYDROmorphone *PCA* 10MG/50ML DISP.SYRIN ONE (14:19)
[2021-06-18] MEDS ORDERED: oxyCODONE HCL 5 MG TABLET PO PRN (11:17)
[2021-06-18] MEDS ORDERED: SIMETHICONE 80 MG TAB.CHEW (FP) PO ONE (11:30)
[2021-06-18 13:13] LABS: BASO % 0.8 % (0-2.0); HEMATOCRIT 30.4 % (32.4-45.2); HEMOGLOBIN 9.6 GM/dL (10.7-15.3); LYMPH % 14.6 % (8-40); MCHC 31.6 g/dl (32.0-36.0); MEAN CELL VOLUME 69.8 fl (80-96); MEAN PLT VOLUME 7.8 fl (7.5-11.1); MONO % 7.4 % (3.8-10.2); NEUT % 74.2 % (42.8-82.8); PLATELET COUNT 342 10^3/uL (134-434); RBC 4.35 M/mm3 (3.60-5.2); WHITE BLOOD COUNT 8.6 K/mm3 (4.0-10.0)
[2021-06-18 13:36] LABS: CALCIUM 8.1 mg/dL (8.5-10.1)
[2021-06-18 13:37] LABS: ALBUMIN 3.2 g/dl (3.4-5.0); BLOOD UREA NITROGEN 8.2 mg/dL (7-18)
[2021-06-18 13:40] LABS: CREATININE 0.7 mg/dL (0.55-1.3)
[2021-06-18 13:41] LABS: BILIRUBIN,TOTAL 0.8 mg/dL (0.2-1)
[2021-06-18 13:42] LABS: TOT PROT 6.9 g/dl (6.4-8.2)
[2021-06-18 14:21] VITALS: BP 126/78; PULSE 79; TEMP 97.7
[2021-06-18] MEDS ORDERED: PCA PUMP NR ONE (17:28)
== END 2021-06-18 17:08 | disposition home or self-care (01) ==
LOC: JASUSAT 05:01 → J6S 17:06 → JASUSAT 06-18 17:08
PROVIDERS: ATTEND Radiology Diagnostic Radiology
PROC: 04LF3DU Occlusion of Left Uterine Artery with Intraluminal Device, Percutaneous Approach (ICD-10-PCS; principal; 2021-06-17)
PROC: 04LE3DT Occlusion of Right Uterine Artery with Intraluminal Device, Percutaneous Approach (ICD-10-PCS; 2021-06-17)
DX: D25.9 Leiomyoma of uterus, unspecified (principal); N93.9 Abnormal uterine and vaginal bleeding, unspecified; N94.89 Other specified conditions associated with female genital organs and menstrual cycle
CPT/HCPCS: 36415; 37243; 80053; 85025

== ENCOUNTER 2022-01-19 04:30 | Day surgery (SDC) | payer OTHER ==
[2022-01-12 12:39] VITALS: BMI 32.8
[2022-01-19] MEDS ORDERED: ceFAZolin SODIUM 1 GM VIAL ONE ×3 (06:28→23:13)
[2022-01-19] MEDS ORDERED: PHENAZOPYRIDINE HCL 100 MG TABLET (FP) ONE (06:28)
[2022-01-19] MEDS ORDERED: CEFAZOLIN 2 GM in DEXTROSE 5%-WATER 100 ML IVPB ONE (06:30)
[2022-01-19] MEDS ORDERED: GABAPENTIN 300 MG CAPSULE ONE (06:59)
[2022-01-19] MEDS ORDERED: GABAPENTIN 300 MG CAPSULE PO ONE (07:00)
[2022-01-19] MEDS ORDERED: PHENAZOPYRIDINE HCL 100 MG TABLET (FP) PO ONE (07:00)
[2022-01-19] MEDS ORDERED: PROPOFOL 20 ML ONE (07:26)
[2022-01-19] MEDS ORDERED: MIDAZOLAM HCL 2 MG/2 ML SINGLE DOSE VIAL ONE ×2 (07:26→07:35)
[2022-01-19] MEDS ORDERED: ROCURONIUM BROMIDE 50 MG/5 ML SYRINGE ONE ×2 (07:26→09:27)
[2022-01-19] MEDS ORDERED: ACETAMINOPHEN 1000 MG/100 ML BAG IVPB ONE (07:30)
[2022-01-19] MEDS ORDERED: TRANEXAMIC ACID 1000 MG/10 ML VIAL IVPUSH ONE (07:30)
[2022-01-19] MEDS ORDERED: BUPIVACAINE HCL/PF 0.5% (5MG/ML) 10 ML VIAL ONE (07:31)
[2022-01-19] MEDS ORDERED: BUPIVACAINE LIPOSOME/PF (EXPAREL) 266 MG/20 ML VIAL ONE (07:33)
[2022-01-19] MEDS ORDERED: HYDROmorphone HCl 2 MG/ML VIAL ONE (08:15)
[2022-01-19] MEDS ORDERED: ceFAZolin SODIUM 1 GM VIAL IVPB ONE (08:20)
[2022-01-19] MEDS ORDERED: LIDOCAINE HCL/PF 2% SDV 5ML VIAL ONE (08:33)
[2022-01-19] MEDS ORDERED: DEXAMETHASONE SOD PHOSPHATE 4 MG/1 ML VIAL ONE (08:33)
[2022-01-19] MEDS ORDERED: ONDANSETRON 4 MG/2 ML VIAL IVPUSH PRN ×2 (09:22→10:29)
[2022-01-19] MEDS ORDERED: oxyCODONE HCL 5 MG TABLET PO PRN ×3 (09:22→10:29)
[2022-01-19] MEDS ORDERED: GLYCOPYRROLATE 0.2 MG/1 ML VIAL ONE (09:57)
[2022-01-19] MEDS ORDERED: NEOSTIGMINE METHYLSULFATE 0.5 MG/ML - 10 ML MDV ONE (09:57)
[2022-01-19] MEDS ORDERED: KETOROLAC TROMETHAMINE 30 MG/1 ML VIAL ONE (10:06)
[2022-01-19] MEDS ORDERED: SUGAMMADEX SODIUM 200 MG/2 ML VIAL ONE (10:10)
[2022-01-19] MEDS ORDERED: DOCUSATE SODIUM 100 MG CAPSULE (FP) PO PRN (10:29)
[2022-01-19] MEDS ORDERED: BISACODYL 5 MG TABLET.DR (FP) PO PRN (10:29)
[2022-01-19] MEDS ORDERED: SIMETHICONE 80 MG TAB.CHEW (FP) PO PRN (10:29)
[2022-01-19] MEDS ORDERED: SODIUM CHLORIDE 1,000 ML IV SCH (10:30)
[2022-01-19] MEDS ORDERED: PANTOPRAZOLE 40 MG TABLET PO PRN (10:31)
[2022-01-19] MEDS ORDERED: CYCLOBENZAPRINE HCL 10 MG TABLET (FP) PO PRN (10:31)
[2022-01-19] MEDS ORDERED: DEXTROSE 5%-WATER - 50 ML IVPB ONE ×2 (16:56→23:13)
[2022-01-19] MEDS ORDERED: ACETAMINOPHEN 325 MG TABLET (FP) PO SCH (17:00)
[2022-01-19] MEDS: CEFAZOLIN 1 GM in DEXTROSE 5%-WATER - 1 GM/50 ML IVPB IVPB SCH ×2 (17:05→23:42)
[2022-01-19] MEDS: KETOROLAC TROMETHAMINE 30 MG/1 ML VIAL IVPUSH SCH (17:36)
[2022-01-19] MEDS: ACETAMINOPHEN 500 MG TABLET (FP) PO SCH ×2 (17:41→23:41)
[2022-01-19 19:44] LABS: HEMATOCRIT 29.8 % (32.4-45.2); HEMOGLOBIN 9.1 GM/dL (10.7-15.3); MCH 20.4 pg (25.7-33.7); MCHC 30.5 g/dl (32.0-36.0); MEAN CELL VOLUME 66.8 fl (80-96); MEAN PLT VOLUME 7.3 fl (7.5-11.1); PLATELET COUNT 323 10^3/uL (134-434); RBC 4.47 M/mm3 (3.60-5.2); RDW 19.2 % (11.6-15.6); WHITE BLOOD COUNT 10.3 K/mm3 (4.0-10.0)
[2022-01-19 20:15] LABS: BLOOD UREA NITROGEN 8.7 mg/dL (7-18); CALCIUM 8.2 mg/dL (8.5-10.1)
[2022-01-19 20:19] LABS: CREATININE 0.8 mg/dL (0.55-1.3)
[2022-01-20] MEDS: KETOROLAC TROMETHAMINE 30 MG/1 ML VIAL IVPUSH SCH ×2 (01:39→10:31)
[2022-01-20 05:48] VITALS: TEMP 98
[2022-01-20] MEDS: ACETAMINOPHEN 500 MG TABLET (FP) PO SCH (06:18)
[2022-01-20 08:24] LABS: HEMATOCRIT 28.4 % (32.4-45.2); HEMOGLOBIN 8.6 GM/dL (10.7-15.3); MCH 20.2 pg (25.7-33.7); MCHC 30.3 g/dl (32.0-36.0); MEAN CELL VOLUME 66.8 fl (80-96); PLATELET COUNT 312 10^3/uL (134-434); RBC 4.25 M/mm3 (3.60-5.2); WHITE BLOOD COUNT 8.8 K/mm3 (4.0-10.0)
[2022-01-20] MEDS ORDERED: ceFAZolin SODIUM 1 GM VIAL ONE (08:57)
[2022-01-20] MEDS ORDERED: DEXTROSE 5%-WATER - 50 ML IVPB ONE (08:57)
[2022-01-20] MEDS: CEFAZOLIN 1 GM in DEXTROSE 5%-WATER - 1 GM/50 ML IVPB IVPB SCH (09:06)
[2022-01-20 09:08] LABS: CALCIUM 8.2 mg/dL (8.5-10.1)
[2022-01-20 09:09] LABS: BLOOD UREA NITROGEN 6.5 mg/dL (7-18)
[2022-01-20 09:13] LABS: CREATININE 0.7 mg/dL (0.55-1.3)
[2022-01-20 09:58] VITALS: BP 121/78; PULSE 70
[2022-01-20] MEDS ORDERED: ENOXAPARIN NA (PORCINE) 40 MG/0.4 ML DISP.SYRIN SQ SCH (10:00)
== END 2022-01-20 11:15 | disposition home or self-care (01) ==
LOC: JASUSAT 04:30 → J3W 12:54 → JASUSAT 01-20 11:15
PROVIDERS: ATTEND Obstetrics & Gynecology
PROC: 0UT2FZZ Resection of Bilateral Ovaries, Via Natural or Artificial Opening With Percutaneous Endoscopic Assistance (ICD-10-PCS; 2022-01-19)
PROC: 0UT7FZZ Resection of Bilateral Fallopian Tubes, Via Natural or Artificial Opening With Percutaneous Endoscopic Assistance (ICD-10-PCS; 2022-01-19)
PROC: 8E0W4CZ Robotic Assisted Procedure of Trunk Region, Percutaneous Endoscopic Approach (ICD-10-PCS; 2022-01-19)
PROC: 0UT9FZZ Resection of Uterus, Via Natural or Artificial Opening With Percutaneous Endoscopic Assistance (ICD-10-PCS; principal; 2022-01-19 07:30)
DX: D25.1 Intramural leiomyoma of uterus (principal); D25.2 Subserosal leiomyoma of uterus; N80.0 Endometriosis of uterus
CPT/HCPCS: 58554; S2900; 36415; 80048; 81025; 85027; 86850; 86900; 86901; 88302-TC; 88305-TC; 88307-TC; 94010; 94760

== ENCOUNTER 2023-08-31 04:45 | Day surgery (SDC) | payer OTHER ==
[2023-08-27 10:05] VITALS: BMI 33.3
[~2023-08-31 04:45] MED LIST changes: -ACETAMINOPHEN 325 MG TABLET (FP) PO PRN; +BUPIVACAINE HCL/PF 0.75% 10 ML VIAL NR ONE; -IBUPROFEN 400 MG TABLET (FP) PO PRN; +LIDOCAINE HCL 1% PRESERVATIVE FREE - 30ML VIAL IJ ONE
[2023-08-31] MEDS ORDERED: BUPIVACAINE HCL/PF 0.75% 10 ML VIAL ONE (07:45)
[2023-08-31] MEDS ORDERED: LIDOCAINE HCL/PF 1% SDV 5ML VIAL ONE (07:45)
[2023-08-31] MEDS ORDERED: ACETAMINOPHEN 500 MG TABLET (FP) PO PRN (11:17)
[2023-08-31] MEDS ORDERED: LIDOCAINE HCL 1% PRESERVATIVE FREE - 30ML VIAL IJ ONE (11:59)
[2023-08-31] MEDS ORDERED: BUPIVACAINE HCL/PF 0.75% 10 ML VIAL NR ONE (11:59)
[2023-08-31 16:04] VITALS: BP 128/84; PULSE 75; RESP 16; TEMP 97.4
== END 2023-08-31 12:45 | disposition home or self-care (01) ==
LOC: JASU-SURG 04:45
PROVIDERS: ATTEND Pain Medicine Pain Medicine
PROC: 3E0T33Z Introduction of Anti-inflammatory into Peripheral Nerves and Plexi, Percutaneous Approach (ICD-10-PCS; 2023-08-31)
PROC: 3E0T3BZ Introduction of Anesthetic Agent into Peripheral Nerves and Plexi, Percutaneous Approach (ICD-10-PCS; principal; 2023-08-31 11:15)
DX: M47.816 Spondylosis without myelopathy or radiculopathy, lumbar region (principal)
CPT/HCPCS: 76000-TC-FY